=== PATIENT | male | born 1990 | race American Indian/Alaskan Native ===

== ENCOUNTER 2021-11-04 08:39 | Outpatient (CLI) | payer OTHER | END 2021-11-04 08:40 | disposition home or self-care (01) | LOC: LABHHL 08:39 | PROVIDERS: ATTEND Otolaryngology Otology & Neurotology | DX: J32.2 Chronic ethmoidal sinusitis (principal); J32.1 Chronic frontal sinusitis; J32.0 Chronic maxillary sinusitis | CPT/HCPCS: 88305; 88311 ==